=== PATIENT | female | born 1955 | race Caucasian/White ===

== ENCOUNTER → 2019-05-14 | Outpatient (CLI) | payer OTHER ==
--- NOTE | 2019-05-14 13:36 | RAD ---
2 views of the bilateral hands without comparison for arthritis. FINDINGS: There is no fracture, dislocation, or acute osseous abnormality involving either hand. No radiopaque foreign bodies are seen. There are mild degenerative changes involving the first carpometacarpal joints on the right. Remaining joints and soft tissues are grossly unremarkable. IMPRESSION: 1. No acute osseous abnormality. 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 Electronically signed by: Jameson Rodriguez MD (05/14/2019 1:34 PM) [facility]
== END | disposition home or self-care (01) ==
LOC: RAD 09:46
PROVIDERS: ATTEND Internal Medicine
DX: M18.9 Osteoarthritis of first carpometacarpal joint, unspecified (principal); F41.9 Anxiety disorder, unspecified; F32.9 Major depressive disorder, single episode, unspecified
CPT/HCPCS: 73120